=== PATIENT | female | born 1995 | race American Indian/Alaskan Native ===

== ENCOUNTER 2020-05-02 17:26 | Emergency (ER) | payer MEDICAID ==
--- NOTE | 2020-05-02 18:43 | Event Note ---
ED Screening Note Date of service: 05/02/20 Time: 18:42 ED Screening Note: Patient complains of exposure to trichomonas by her boyfriend She denies symptom or abdominal pain This initial assessment/diagnostic orders/clinical plan/treatment(s) is/are subject to change based on patients health status, clinical progression and re- assessment by fellow clinical providers in the ED. Further treatment and workup at subsequent clinical providers discretion. Patient/guardian urged not to elope from the ED as their condition may be serious if not clinically assessed and managed. Initial orders include: UA Pelvic exam in ACC
[2020-05-02 18:44] VITALS: BP 124/76
[2020-05-02 19:40] LABS: Bilirubin,Urine NEG (Negative); Blood,Urine NEG (Negative); Color,Urine Yellow (Yellow); Mucus,Urine FEW /HPF; Protein,Urine <15 mg/dL mg/dL (Negative); Urobilinogen,Urine < 2.0 mg/dL (<2.0)
[2020-05-02 19:48] LABS: HCG Qualitative,Urine Negative (Negative)
== END 2020-05-03 00:45 | disposition home or self-care (01) ==
LOC: ED 17:26
DX: A64 Unspecified sexually transmitted disease (principal); Z20.2 Contact with and (suspected) exposure to infections with a predominantly sexual mode of transmission
CPT/HCPCS: 81001; 81025; 99283